=== PATIENT | male | born 1955 | race Caucasian/White ===

== ENCOUNTER 2016-12-06 17:07 | Emergency (ER) | payer OTHER ==
--- NOTE | 2016-12-06 17:50 | ED ---
General Adult HPI - General Chief complaint: Dizziness Stated complaint: DIZZINESS WHILE DRIVING, Time Seen by Provider: 12/06/16 17:16 Source: patient, RN notes reviewed, old records reviewed Mode of arrival: ambulatory Limitations: no limitations - History of Present Illness Initial comments: This is a 61-year-old male here for evaluation of room spinning and dizziness, nausea vomiting. Patient has medical history of high blood pressure no other medical history. States he was driving in the room began to spin around. He pulled over and had to call for ride the hospital. Patient states the room was spinning and upon arrival to emergency room with nausea. Decreased ability to ambulate. Patient denies headache. Denies history of stroke denies history of heart disease - Related Data Home Medications Medication Instructions Recorded Confirmed Losartan Potassium [Cozaar] 100 mg PO DAILY 12/06/16 12/06/16 Multivit-Min/FA/Lycopene/Lut 1 tab PO DAILY 12/06/16 12/06/16 [Centrum Silver Tablet] Previous Rx's Medication Instructions Recorded Meclizine [Antivert] 25 mg PO TID #30 tab 12/06/16 Ondansetron [Zofran] 4 mg PO Q8HR PRN #30 tab 12/06/16 Allergies Allergy/AdvReac Type Severity Reaction Status Date / Time codeine Allergy Rash/Hives Verified 12/06/16 18:11 Penicillins Allergy Rash/Hives Verified 12/06/16 18:11 Review of Systems ROS Statement: Those systems with pertinent positive or pertinent negative responses have been documented in the HPI. ROS Other: All systems not noted in ROS Statement are negative. Past Medical History Past Medical History: Hypertension History of Any Multi-Drug Resistant Organisms: None Reported Additional Past Surgical History / Comment(s): elbow surgery Past Psychological History: No Psychological Hx Reported Smoking Status: Current every day smoker Past Alcohol Use History: Daily Past Drug Use History: None Reported General Exam Limitations: no limitations General appearance: alert, in no apparent distress Head exam: Present: atraumatic, normocephalic, normal inspection Eye exam: Present: normal appearance, PERRL, EOMI, nystagmus (Mild). Absent: scleral icterus, conjunctival injection, periorbital swelling ENT exam: Present: normal exam, mucous membranes moist Neck exam: Present: normal inspection. Absent: tenderness, meningismus, lymphadenopathy Respiratory exam: Present: normal lung sounds bilaterally. Absent: respiratory distress, wheezes, rales, rhonchi, stridor Cardiovascular Exam: Present: regular rate, normal rhythm, normal heart sounds. Absent: systolic murmur, diastolic murmur, rubs, gallop, clicks GI/Abdominal exam: Present: soft, normal bowel sounds. Absent: distended, tenderness, guarding, rebound, rigid Extremities exam: Present: normal inspection, full ROM, normal capillary refill. Absent: tenderness, pedal edema, joint swelling, calf tenderness Back exam: Present: normal inspection Neurological exam: Present: alert, oriented X3, CN II-XII intact Psychiatric exam: Present: normal affect, normal mood Skin exam: Present: warm, dry, intact, normal color. Absent: rash Course Vital Signs 12/06/16 12/06/16 17:26 18:35 Temperature 96.8 F L 98.0 F Pulse Rate 91 78 Respiratory 22 16 Rate Blood Pressure 211/94 148/76 O2 Sat by Pulse 97 94 L Oximetry - Reevaluation(s) Reevaluation #1: 12/06/16 19:01 The patient states he feels much improved prior to arrival., Room is no longer spinning Reevaluation #2: 12/06/16 19:01 Patient is able to ambulate without difficulty 12/06/16 19:01 EKG Findings - EKG Comments: EKG Findings:: EKG shows normal sinus a rate of 80, DC 142, QRS 102, QTC 486 Medical Decision Making - Medical Decision Making 61 [place]chuy year for evaluation of signs and symptoms of dizziness, vertigo, sudden onset of vertigo with nausea and vomiting. Room spinning around. Patient's symptoms at this time are improved is able to ambulate without difficulty and can be discharged home - Lab Data Result diagrams: 12/06/16 18:05 12/06/16 18:05 Lab Results 12/06/16 12/06/16 12/06/16 Range/Units 18:00 18:05 18:05 WBC 16.3 H (3.8-10.6) k/uL RBC 5.17 (4.30-5.90) m/uL Hgb 16.3 (13.0-17.5) gm/dL Hct 50.0 (39.0-53.0) % MCV 96.7 (80.0-100.0) fL MCH 31.5 (25.0-35.0) pg MCHC 32.6 (31.0-37.0) g/dL RDW 14.0 (11.5-15.5) % Plt Count 216 (150-450) k/uL Neutrophils % 51 % Lymphocytes % 36 % Monocytes % 4 % Eosinophils % 4 % Basophils % 2 % Neutrophils # 8.3 H (1.3-7.7) k/uL Lymphocytes # 5.8 H (1.0-4.8) k/uL Monocytes # 0.7 (0-1.0) k/uL Eosinophils # 0.7 (0-0.7) k/uL Basophils # 0.3 H (0-0.2) k/uL PT (9.0-12.0) sec INR (<1.1) APTT (22.0-30.0) sec Sodium (137-145) mmol/L Potassium (3.5-5.1) mmol/L Chloride (98-107) mmol/L Carbon Dioxide (22-30) mmol/L Anion Gap mmol/L BUN (9-20) mg/dL Creatinine (0.66-1.25) mg/dL Est GFR (MDRD) Af Amer (>60 ml/min/1.73 sqM) Est GFR (MDRD) Non-Af (>60 ml/min/1.73 sqM) Glucose (74-99) mg/dL POC Glucose (mg/dL) 156 H (75-99) mg/dL POC Glu [employer] Supervisor ID Andre, Larissa Calcium (8.4-10.2) mg/dL Phosphorus (2.5-4.5) mg/dL Magnesium (1.6-2.3) mg/dL Total Bilirubin (0.2-1.3) mg/dL AST (17-59) U/L ALT (21-72) U/L Alkaline Phosphatase (38-126) U/L Total Creatine Kinase 115 (55-170) U/L CK-MB (CK-2) 1.1 (0.0-2.4) ng/mL CK-MB (CK-2) Rel Index 1.0 Troponin I <0.012 (0.000-0.034) ng/mL Total Protein (6.3-8.2) g/dL Albumin (3.5-5.0) g/dL 12/06/16 12/06/16 Range/Units 18:05 18:05 WBC (3.8-10.6) k/uL RBC (4.30-5.90) m/uL Hgb (13.0-17.5) gm/dL Hct (39.0-53.0) % MCV (80.0-100.0) fL MCH (25.0-35.0) pg MCHC (31.0-37.0) g/dL RDW (11.5-15.5) % Plt Count (150-450) k/uL Neutrophils % % Lymphocytes % % Monocytes % % Eosinophils % % Basophils % % Neutrophils # (1.3-7.7) k/uL Lymphocytes # (1.0-4.8) k/uL Monocytes # (0-1.0) k/uL Eosinophils # (0-0.7) k/uL Basophils # (0-0.2) k/uL PT 9.8 (9.0-12.0) sec INR 1.0 (<1.1) APTT 22.2 (22.0-30.0) sec Sodium 138 (137-145) mmol/L Potassium 3.8 (3.5-5.1) mmol/L Chloride 107 (98-107) mmol/L Carbon Dioxide 19 L (22-30) mmol/L Anion Gap 12 mmol/L BUN 13 (9-20) mg/dL Creatinine 0.78 (0.66-1.25) mg/dL Est GFR (MDRD) Af Amer >60 (>60 ml/min/1.73 sqM) Est GFR (MDRD) Non-Af >60 (>60 ml/min/1.73 sqM) Glucose 167 H (74-99) mg/dL POC Glucose (mg/dL) (75-99) mg/dL POC Glu [employer] Supervisor ID Calcium 9.1 (8.4-10.2) mg/dL Phosphorus 2.5 (2.5-4.5) mg/dL Magnesium 2.0 (1.6-2.3) mg/dL Total Bilirubin 1.0 (0.2-1.3) mg/dL AST 28 (17-59) U/L ALT 35 (21-72) U/L Alkaline Phosphatase 83 (38-126) U/L Total Creatine Kinase (55-170) U/L CK-MB (CK-2) (0.0-2.4) ng/mL CK-MB (CK-2) Rel Index Troponin I (0.000-0.034) ng/mL Total Protein 7.7 (6.3-8.2) g/dL Albumin 4.2 (3.5-5.0) g/dL - Radiology Data Radiology results: report reviewed (CT brain is negative for acute disease), image reviewed Disposition Clinical Impression: Benign paroxysmal positional vertigo Disposition: HOME SELF-CARE Condition: Good Instructions: Vertigo (ED) Prescriptions: Meclizine [Antivert] 25 mg PO TID #30 tab Ondansetron [Zofran] 4 mg PO Q8HR PRN #30 tab PRN Reason: Nausea Referrals: Preston Krishna MD [Primary Care Provider] - 1-2 days
[2016-12-06] MEDS ORDERED: DIAZEPAM 5 MG/ML 2 ML SYRINGE IVP STA (17:54)
[2016-12-06] MEDS ORDERED: ONDANSETRON 4 MG/2 ML VIAL IVP STA (17:54)
[2016-12-06] MEDS ORDERED: SODIUM CHLORIDE 0.9% 1,000 ML IV STA ×2 (17:54)
[2016-12-06 18:09] LABS: Glucose,Whole Blood 156 mg/dL (75-99)
[2016-12-06 18:25] LABS: Basophils # (A) 0.3 k/uL (0-0.2); Basophils % (A) 2 %; CHCM 34.3; Eosinophils # (A) 0.7 k/uL (0-0.7); Eosinophils % (A) 4 %; HDW 2.41; HGB 16.3 gm/dL (13.0-17.5); Luc # (Auto) 0.51; Luc % (Auto) 3; Lymphocytes # (A) 5.8 k/uL (1.0-4.8); Lymphocytes % (A) 36 %; MCH 31.5 pg (25.0-35.0); MCHC 32.6 g/dL (31.0-37.0); MCV 96.7 fL (80.0-100.0); Mean Platelet Volume 8.4; Monocytes # (A) 0.7 k/uL (0-1.0); Monocytes % (A) 4 %; Neutrophils # (A) 8.3 k/uL (1.3-7.7); Neutrophils % (A) 51 %; RBC 5.17 m/uL (4.30-5.90); WBC 16.3 k/uL (3.8-10.6); WBC (Perox) 15.65
[2016-12-06 18:31] LABS: ALT 35 U/L (21-72); AST 28 U/L (17-59); Alkaline Phosphatase 83 U/L (38-126); Anion Gap 12 mmol/L; Blood Urea Nitrogen 13 mg/dL (9-20); Calcium 9.1 mg/dL (8.4-10.2); Carbon Dioxide 19 mmol/L (22-30); Chloride 107 mmol/L (98-107); Glucose 167 mg/dL (74-99); Non-African American GFR(MDRD) >60 (>60 ml/min/1.73 sqM); Phosphorous 2.5 mg/dL (2.5-4.5); Sodium 138 mmol/L (137-145); Total Protein 7.7 g/dL (6.3-8.2)
[2016-12-06 18:34] LABS: Potassium 3.8 mmol/L (3.5-5.1)
[2016-12-06 18:43] LABS: Creatine Kinase 115 U/L (55-170)
[2016-12-06 18:46] LABS: Prothrombin Time 9.8 sec (9.0-12.0)
[2016-12-06 18:53] LABS: Partial Thromboplastin Time 22.2 sec (22.0-30.0)
[2016-12-06 18:56] LABS: Creatine Kinase MB 1.1 ng/mL (0.0-2.4); Troponin I <0.012 ng/mL (0.000-0.034)
--- NOTE | 2016-12-06 19:13 | CT ---
EXAMINATION TYPE: CT brain wo con DATE OF EXAM: 12/06/2016 6:51 PM COMPARISON: NONE HISTORY: sudden onest visual disturbance and dizziness CT DLP: 1081.6 mGycm. Automated Exposure Control for Dose Reduction was Utilized. TECHNIQUE: CT scan of the head is performed without contrast. FINDINGS: There is no acute intracranial hemorrhage, mass effect, or midline shift identified. The re is a focal area of hypoattenuation within the left frontal white matter of the mcclain radiata. Oth er scattered areas of hypoattenuation are seen within the subcortical and periventricular white matte r, likely on the basis of chronic microangiopathy. Similar changes seen within the right cerebellar h emisphere. Atherosclerosis is seen of the intracranial vasculature. The ventricles and sulci are with in normal limits in size. Moderate mucosal thickening is seen within the ethmoid sinuses. The globes are intact and the remaining visualized sinuses are clear. IMPRESSION: 1. No acute intracranial hemorrhage, mass effect, or midline shift is seen. 2. Age-indeterminate lacunar injury within the left frontal subcortical white matter. 3. Moderate ethmoid paranasal sinus mucosal thickening.
[2016-12-06 19:15] VITALS: RESP 16
[2016-12-06 19:36] VITALS: BP 162/74; PULSE 80; TEMP 97.5
== END 2016-12-06 19:45 | disposition home or self-care (01) ==
LOC: EC 17:07
DX: H81.10 Benign paroxysmal vertigo, unspecified ear (principal); R11.2 Nausea with vomiting, unspecified; H55.00 Unspecified nystagmus; I10 Essential (primary) hypertension; F17.200 Nicotine dependence, unspecified, uncomplicated; Z79.899 Other long term (current) drug therapy; Z88.0 Allergy status to penicillin; Z88.5 Allergy status to narcotic agent
CPT/HCPCS: 99285; 96374; 96375; 96361; 36415; 93005; 80053; 82550; 82553; 83735; 84100; 84484; 85025; 85610; 85730; 70450; J3360; J2405